=== PATIENT | female | born 1975 | race Caucasian/White ===

== ENCOUNTER 2017-01-25 18:57 | Inpatient (IN) | payer OTHER ==
[~2017-01-25] VITALS: Ht 157.5 cm; Wt 58.1 kg
[2017-01-25 21:13] LABS: HEMOGLOBIN 15.5 gm/dl (12.3-15.3); RED BLOOD COUNT 5.13 M/UL (4.00-5.10); WHITE BLOOD COUNT 8.7 K/UL (4.5-11.0)
[2017-01-25 21:58] LABS: BUN/CREATININE RATIO 15 (0-10)
[2017-01-26] MEDS ORDERED: SUBOXONE 8 MG-1 EACH SL (05:35)
[2017-01-26] MEDS ORDERED: NEURONTIN 400400 MG PO (05:35)
[2017-01-26 07:23] LABS: BUN/CREATININE RATIO 20 (0-10); WHITE BLOOD COUNT 7.7 K/UL (4.5-11.0)
[2017-01-26 07:36] LABS: HEMOGLOBIN 13.4 gm/dl (12.3-15.3); RED BLOOD COUNT 4.45 M/UL (4.00-5.10)
[2017-01-27 04:56] LABS: HEMOGLOBIN 13.2 gm/dl (12.3-15.3); RED BLOOD COUNT 4.44 M/UL (4.00-5.10)
[2017-01-27 05:18] LABS: BUN/CREATININE RATIO 17 (0-10)
[2017-01-29 06:47] LABS: BUN/CREATININE RATIO 25 (0-10)
== END 2017-01-29 21:15 | disposition home or self-care (01) | DRG 442 ==
LOC: ER1 18:57 → M/S 23:42 → ZEROF 23:42 → M/S 01-26 05:26
PROVIDERS: Family Medicine; Hospitalist; ADMIT Internal Medicine
DX: B17.9 Acute viral hepatitis, unspecified (principal); K81.0 Acute cholecystitis; B18.2 Chronic viral hepatitis C; F11.10 Opioid abuse, uncomplicated; F12.10 Cannabis abuse, uncomplicated; E80.6 Other disorders of bilirubin metabolism; F17.210 Nicotine dependence, cigarettes, uncomplicated; F10.10 Alcohol abuse, uncomplicated; G89.4 Chronic pain syndrome; M79.7 Fibromyalgia; G40.909 Epilepsy, unspecified, not intractable, without status epilepticus; Z90.710 Acquired absence of both cervix and uterus; Z98.890 Other specified postprocedural states; Z79.899 Other long term (current) drug therapy; R10.10 Upper abdominal pain, unspecified; R11.0 Nausea; M54.5 Low back pain; M25.559 Pain in unspecified hip
CPT/HCPCS: 36415; 71010; 74181; 76705; 80053; 80074; 80076; 80307; 81001; 82140; 82550; 82553; 83690; 83874; 84484; 85025; 85027; 85610; 85730; 86403; 87086; 87390; 93005; 96361; 96365; 96375; 99285; C9113; J1956; J2270; J2405; J7030; J7050; Q9962